=== PATIENT | male | born 1980 | race Caucasian/White ===

== ENCOUNTER → 2016-09-20 | Outpatient (CLI) | payer BC ==
--- NOTE | 2016-09-22 16:22 | CR ---
EXAM DATE: 09/20/16 PATIENT'S AGE: 36 Patient: SINGH MUSTAFA Facility: [place], [place] Site . Site : 1980 Study: XRay Knee Bilateral [id number] 10:29:18 AM Ordering Physician: Flako Jacques Final Report: Indication: Knee pain. Comparison: None. Technique: Six views bilateral knees. Impression: Well maintained joint spaces bilaterally. No joint effusion. No bone lesion or fracture. Unremarkable radiographs bilateral knees. Dictated by Wicho Izquierdo MD @ Sep 20 2016 10:37AM (Electronic Signature) Report Signed by Proxy. [id number]
== END ==
LOC: MW.CHRC 09:55
PROVIDERS: ATTEND Family Medicine
DX: M25.561 Pain in right knee (principal); M25.562 Pain in left knee
CPT/HCPCS: 735642650; 73564-50

== ENCOUNTER 2019-08-09 08:36 | Emergency (ER) | payer BC, MEDICAID ==
[2019-08-09] MEDS ORDERED: Ibuprofen 800 MG Tab PO ONE (08:55)
--- NOTE | 2019-08-09 09:11 | EDM.PDOC ---
ED HPI GENERAL MEDICAL PROBLEM - General Chief Complaint: Abdominal Pain Stated Complaint: STOMACH PAIN Time Seen by Provider: 08/09/19 09:03 Source of Information: Reports: Patient History Limitations: Reports: No Limitations - History of Present Illness INITIAL COMMENTS - FREE TEXT/NARRATIVE: This 38 year old male is admitted to the ED with a chief complaint of epigastric abdominal pain for 24 hours. He states that the pain is dull to sharp and comes and goes. He denies any nausea or vomiting but does complain of 4 loose yellow stools. He states that he had three 12oz cans of beer yesterday. He denies any chest pain, SOB or urinary symptoms. He denies any other symptoms at this time. Onset: Today Location: Reports: Abdomen (episgastric area) Quality: Reports: Dull, Sharp Severity: Moderate Improves with: Reports: None Worsens with: Reports: None Associated Symptoms: Reports: No Other Symptoms umbilical area Pain Score (Numeric/FACES): 2 - Related Data Allergies Allergy/AdvReac Type Severity Reaction Status Date / Time No Known Allergies Allergy Verified 08/09/19 09:01 Home Meds: Home Meds Pantoprazole Sodium [Protonix] 40 mg PO DAILY #30 tablet. 08/09/19 [Rx] ED ROS GENERAL - Review of Systems Review Of Systems: See Below Constitutional: Reports: No Symptoms HEENT: Reports: No Symptoms Respiratory: Reports: No Symptoms Cardiovascular: Reports: No Symptoms Endocrine: Reports: No Symptoms GI/Abdominal: Reports: Abdominal Pain (as noted). Denies: Black Stool, Bloody Stool, Constipation : Reports: No Symptoms Musculoskeletal: Reports: No Symptoms Skin: Reports: No Symptoms Neurological: Reports: No Symptoms ED EXAM, GI/ABD - Physical Exam Exam: See Below Exam Limited By: No Limitations General Appearance: Alert, WD/WN, No Apparent Distress Ears: Normal External Exam, Normal Canal, Hearing Grossly Normal, Normal TMs Nose: Normal Inspection, Normal Mucosa, No Blood Throat/Mouth: Normal Inspection, Normal Lips, Normal Teeth, Normal Gums, Normal Oropharynx, Normal Voice, No Airway Compromise Head: Atraumatic, Normocephalic Neck: Normal Inspection Respiratory/Chest: No Respiratory Distress, Lungs Clear, Normal Breath Sounds, No Accessory Muscle Use, Chest Non-Tender Cardiovascular: Normal Peripheral Pulses, Regular Rate, Rhythm, No Edema, No Gallop, No JVD, No Murmur, No Rub GI/Abdominal Exam: Normal Bowel Sounds, Soft, No Organomegaly, No Distention, No Abnormal Bruit, No Mass, Other (tenderness is noted in the epigastric area only. ) (Male) Exam: Deferred Rectal (Males) Exam: Deferred Back Exam: Normal Inspection, Full Range of Motion Extremities: Normal Inspection, Normal Range of Motion, Normal Capillary Refill Neurological: Alert, Oriented, CN II-XII Intact, Normal Reflexes Psychiatric: Normal Affect, Normal Mood Skin Exam: Warm, Dry, Intact, Normal Color, No Rash Course - Vital Signs Text/Narrative:: I have reviewed all of the patient's lab test and CT of the abdomen and pelvis. He is pain free after the GI cocktail. Abdomen exam is negative. No acute pathology. He will be discharge. He agrees with the discharge plan. Last Recorded V/S: Last Vital Signs Temp 97.8 F 08/09/19 09:02 Pulse 96 08/09/19 10:48 Resp 16 08/09/19 10:48 BP 146/89 H 08/09/19 10:48 Pulse Ox 97 08/09/19 10:48 - Orders/Labs/Meds Labs: Laboratory Tests 08/09/19 08/09/19 08/09/19 Range/Units 09:00 09:30 09:30 WBC 11.58 H (4.0-11.0) K/uL RBC 4.91 (4.50-5.90) M/uL Hgb 16.2 (13.0-17.0) g/dL Hct 47.9 (38.0-50.0) % MCV 97.6 (80.0-98.0) fL MCH 33.0 H (27.0-32.0) pg MCHC 33.8 (31.0-37.0) g/dL RDW Std Deviation 43.9 (28.0-62.0) fl RDW Coeff of Greyson 12 (11.0-15.0) % Plt Count 179 (150-400) K/uL MPV 11.90 (7.40-12.00) fL Neut % (Auto) 73.2 (48.0-80.0) % Lymph % (Auto) 16.9 (16.0-40.0) % Pepin % (Auto) 8.3 (0.0-15.0) % Eos % (Auto) 1.4 (0.0-7.0) % Baso % (Auto) 0.2 (0.0-1.5) % Neut # (Auto) 8.5 H (1.4-5.7) K/uL Lymph # (Auto) 2.0 (0.6-2.4) K/uL Pepin # (Auto) 1.0 H (0.0-0.8) K/uL Eos # (Auto) 0.2 (0.0-0.7) K/uL Baso # (Auto) 0.0 (0.0-0.1) K/uL Nucleated RBC % 0.0 /100WBC Nucleated RBCs # 0 K/uL Sodium 141 (136-148) mmol/L Potassium 4.5 (3.5-5.1) mmol/L Chloride 104 (98-107) mmol/L Carbon Dioxide 27.2 (21.0-32.0) mmol/L BUN 10 (7.0-18.0) mg/dL Creatinine 1.1 (0.8-1.3) mg/dL Est Cr Clr Drug Dosing 95.08 mL/min Estimated GFR (MDRD) > 60.0 ml/min Glucose 98 (74-106) mg/dL Calcium 9.1 (8.5-10.1) mg/dL Total Bilirubin 0.5 (0.2-1.0) mg/dL AST 22 (15-37) IU/L ALT 42 (14-63) IU/L Alkaline Phosphatase 103 (46-116) U/L Total Protein 7.1 (6.4-8.2) g/dL Albumin 3.9 (3.4-5.0) g/dL Globulin 3.2 (2.6-4.0) g/dL Albumin/Globulin Ratio 1.2 (0.9-1.6) Lipase 139 (73-393) U/L Urine Color YELLOW Urine Appearance CLEAR Urine pH 7.0 (5.0-8.0) Ur Specific Baker 1.025 (1.001-1.035) Urine Protein NEGATIVE (NEGATIVE) mg/dL Urine Glucose (UA) NEGATIVE (NEGATIVE) mg/dL Urine Ketones NEGATIVE (NEGATIVE) mg/dL Urine Occult Blood NEGATIVE (NEGATIVE) Urine Nitrite NEGATIVE (NEGATIVE) Urine Bilirubin NEGATIVE (NEGATIVE) Urine Urobilinogen 0.2 (<2.0) EU/dL Ur Leukocyte Esterase NEGATIVE (NEGATIVE) Meds: Medications Discontinued Medications Generic Name Dose Route Start Last Admin Trade Name Siri PRN Reason Stop Dose Admin Al Hydroxide/Mg Hydroxide 15 0 ml 08/09/19 09:12 08/09/19 09:29 ml/ Lidocaine HCl 5 ml PO 08/09/19 09:13 20 each ONETIME ONE Administration Sodium Chloride 1,000 mls @ 1,000 mls/hr 08/09/19 09:14 08/09/19 09:29 Normal Saline IV 08/09/19 10:13 1,000 mls/hr .Bolus ONE Administration Iopamidol 100 ml 08/09/19 10:26 08/09/19 10:26 Isovue Multipack-370 (76%) IVPUSH 08/09/19 10:27 100 ml ONETIME STA Administration Departure - Departure Time of Disposition: 11:53 Disposition: Home, Self-Care 01 Condition: Good Clinical Impression: Gastritis - Discharge Information *PRESCRIPTION DRUG MONITORING PROGRAM REVIEWED*: Yes *COPY OF PRESCRIPTION DRUG MONITORING REPORT IN PATIENT ANNA: Yes Prescriptions: Pantoprazole Sodium [Protonix] 40 mg PO DAILY #30 tablet. Instructions: Gastritis, Adult, [id number] Referrals: PCP,None [Primary Care Provider] - Forms: ED Department Discharge Additional Instructions: Take all medications as directed. Follow up with your PCP in the next two to four days. Drink plenty of clear liquids for the next 24 hours. Rest for the next 24 hours. Avoid excessive use of alcohol in that this will cause your stomach it hurt and might well lead to other problems. Return to the ED if your condition gets worse or should you have any questions or concerns. The following information is given to patients seen in the emergency department who are being discharged to home. This information is to outline your options for follow-up care. We provide all patients seen in our emergency department with a follow-up referral. The need for follow-up, as well as the timing and circumstances, are variable depending upon the specifics of your emergency department visit. If you don't have a primary care physician on staff, we will provide you with a referral. We always advise you to contact your personal physician following an emergency department visit to inform them of the circumstance of the visit and for follow-up with them and/or the need for any referrals to a consulting specialist. The emergency department will also refer you to a specialist when appropriate. This referral assures that you have the opportunity for follow-up care with a specialist. All of these measure are taken in an effort to provide you with optimal care, which includes your follow-up. Under all circumstances we always encourage you to contact your private physician who remains a resource for coordinating your care. When calling for follow-up care, please make the office aware that this follow-up is from your recent emergency room visit. If for any reason you are refused follow-up, please contact the [facility] Emergency Department at and asked to speak to the emergency department charge nurse. Sepsis Event Note - Focused Exam Vital Signs: Vital Signs Temp Pulse Resp BP Pulse Ox 08/09/19 10:48 96 16 146/89 H 97 08/09/19 09:02 97.8 F 100 16 140/95 H 98 Date Exam was Performed: 08/09/19 Time Exam was Performed: 11:52
[2019-08-09] MEDS ORDERED: Alum Hydrox/Mag Hydrox/Simeth 15 ML, Lidocaine 2% 5 ML PO ONE ×2 (09:12)
[2019-08-09] MEDS ORDERED: Sodium Chloride 0.9% 1,000 ML IV ONE (09:14)
[2019-08-09 10:01] LABS: BLOOD UREA NITROGEN,BUN 10 mg/dL (7.0-18.0); CARBON DIOXIDE,CO2 27.2 mmol/L (21.0-32.0); CHLORIDE,CL 104 mmol/L (98-107); GLUCOSE RANDOM 98 mg/dL (74-106); LIPASE 139 U/L (73-393); POTASSIUM,K 4.5 mmol/L (3.5-5.1); SODIUM,NA 141 mmol/L (136-148)
[2019-08-09] MEDS ORDERED: Iopamidol 755 MG/ML 500 ML Multipack Bottle IVPUSH STA (10:26)
--- NOTE | 2019-08-09 11:48 | CT ---
INDICATION : Epigastric pain with diarrhea. TECHNIQUE : CT Scan of the Abdomen and pelvis IV contrast. 100 cc. COMPARISON : No comparison FINDINGS: GI tract: Diffuse thickening of the colon involving the entire colon. The appendix appears normal. A few scattered lymph nodes in the right lower quadrant mesentery. No signs for obstruction. Lung bases: Clear. Liver, spleen, adrenal glands, pancreas, kidneys: No masses or hydronephrosis. Lymph nodes: No pathologic enlargement. Pelvis: Tiny calcification is present in the midline prostate. The bladder is unremarkable. No free fluid. Skeletal: No suspicious abnormality. Transitional morphology at the lumbosacral junction. IMPRESSION: 1. Colitis appears to involve the entire colon. Consider infection but follow-up is suggested to evaluate resolution and to exclude noninfectious inflammatory etiology. 2. No signs for obstruction, perforation or other intra-abdominal or pelvic complication. Please note that all CT scans at this facility use dose modulation, iterative reconstruction, and/or weight-based dosing when appropriate to reduce radiation dose to as low as reasonably achievable. Dictated by Chris Ross MD @ Aug 09 2019 11:36AM Signed by Dr. Chris Ross @ Aug 09 2019 11:47AM
== END 2019-08-09 12:05 | disposition home or self-care (01) ==
LOC: MW.ED 08:36
DX: K29.70 Gastritis, unspecified, without bleeding (principal); Z79.899 Other long term (current) drug therapy
CPT/HCPCS: 36415; 74177; 80053; 81003; 83690; 85025; 96360; 99284; A9270; J7030; Q9967